=== PATIENT | male | born 1970 | race Caucasian/White ===

== ENCOUNTER 2021-12-01 10:57 | Observation (INO) ==
[2021-12-01 12:53] LABS: Basophils % 0.6 %; Eosinophils # 0.1 K/mcL (0.0-0.6); Eosinophils % 3.6 %; Hematocrit 29.4 % (37.5-50.1); Hemoglobin 9.9 g/dL (12.9-16.9); Immature Granulocytes % 0.6 % (0-4); Lymphocytes # 0.7 K/mcL (0.6-4.6); Lymphocytes % 21.1 %; Mean Corpuscular HGB Conc 33.7 g/dL (31.6-35.5); Mean Corpuscular Hemoglobin 30.7 pg (28.0-33.3); Mean Corpuscular Volume 91.3 fL (83.0-100.0); Mean Platelet Volume 9.1 fL (9.4-12.4); Monocytes # 0.3 K/mcL (0.0-1.3); Monocytes % 9.4 %; Platelet Count 147 K/mcL (140-400); Red Blood Count 3.22 M/mcL (4.19-5.50); Red Cell Distribution Width 13.8 % (11.5-14.5); Segmented Neutrophils % 64.7 %; White Blood Count 3.1 K/mcL (4.3-11.1)
[2021-12-01 13:13] LABS: BUN/Creatinine Ratio 12 (6-26); Blood Urea Nitrogen 6 mg/dL (6-20); C-Reactive Protein 59 mg/L (Less than 10); Calcium 7.7 mg/dL (8.6-10.3); Carbon Dioxide 28 mEq/L (23-29); Chloride 111 mEq/L (98-107); Glucose 88 mg/dL (70-105); Osmolality,Calculated 287 (280-300); Potassium 3.3 mEq/L (3.5-5.1); Sodium 140 mEq/L (136-145)
[2021-12-01] MEDS ORDERED: methylPREDNISolone 125 MG/2 ML VIAL IVP ONE (13:34)
[2021-12-01] MEDS ORDERED: Iopamidol - 370 500 ML MLS IVP ONE (13:34)
[2021-12-01] MEDS ORDERED: *HR* Heparin 5,000 UNIT/ML VIAL IVP PRN ×2 (14:46)
[2021-12-01] MEDS ORDERED: *HR* Heparin 5,000 UNIT/ML VIAL IVP ONE (14:46)
[2021-12-01] MEDS ORDERED: Heparin 25,000UNIT/250ML 1/2NS 25,000 UNIT/250 ML IV.SOLN IVC SCH (15:00)
[2021-12-01] MEDS ORDERED: cefTRIAXone 2,000 MG in 0.9 % Sodium Chloride 20 ML IVP ONE (15:20)
[2021-12-01] MEDS ORDERED: Ondansetron ODT 4 MG TAB.RAPDIS SL PRN (16:31)
[2021-12-01] MEDS ORDERED: Melatonin 3 MG TABLET PO PRN (16:31)
[2021-12-01] MEDS ORDERED: Naloxone 0.4 MG/ML INJ IVP PRN (16:31)
[2021-12-01] MEDS ORDERED: Doxycycline 100 MG in 0.9 % Sodium Chloride Mini Bag 100 ML IVPB ONE (17:33)
[2021-12-01] MEDS: Ampicillin/Sulbactam 3,000 MG in 0.9 % Sodium Chloride Mini Bag 100 ML IVPB SCH (23:52)
[2021-12-02] MEDS: Ampicillin/Sulbactam 3,000 MG in 0.9 % Sodium Chloride Mini Bag 100 ML IVPB SCH ×2 (00:34→07:36)
[2021-12-02] MEDS ORDERED: Amoxicillin 500 MG CAPSULE PO SCH (09:00)
[2021-12-02] MEDS ORDERED: Doxycycline 100 MG CAPSULE PO SCH (09:00)
[2021-12-02 10:14] VITALS: BP 144/85; PULSE 60; TEMP 97.5; O2SAT 97
[2021-12-02 11:26] LABS: Alanine Aminotransferase 32 Units/L (7-52); Albumin 2.6 g/dL (3.5-5.7); Albumin/Globulin Ratio 0.7 (1.1-2.2); Alkaline Phosphatase 86 Units/L (34-104); Aspartate Amino Transferase 46 Units/L (13-39); Bilirubin,Direct 0.2 mg/dL (0.0-0.2); Bilirubin,Indirect 0.3 mg/dL (0.0-1.0); Bilirubin,Total 0.5 mg/dL (0.3-1.0); Globulin 3.9 g/dL (2.4-3.5); Total Protein 6.5 g/dL (6.4-8.9)
[2021-12-02] MEDS ORDERED: *HR* Rivaroxaban 15 MG TABLET PO SCH (11:30)
== END 2021-12-02 11:50 | disposition left against medical advice (07) ==
LOC: EMEROOARM 10:57 → 3ANU 10:57 → SUATTDRO 15:28 → 3ANU 15:30
PROVIDERS: ADMIT Pharmacist; ATTEND Internal Medicine